=== PATIENT | female | born 1945 | race Caucasian/White ===

== ENCOUNTER 2023-11-02 08:05 | Inpatient (IN) | payer MEDICARE, SELFPAY ==
[2023-10-31] VITALS (9 sets, daily range): BP systolic 129–169; BP diastolic 54–92; BMI 27.0; BMI 26.6
[2023-10-31 14:55] LABS: Glucose - Point of Care 249 mg/dl (70-99)
--- NOTE | 2023-10-31 15:13 | ED.CVA ---
History of Present Illness
General
Chief Complaint: CVA/TIA Symptoms
Source: patient and family
Exam Limitations: none
Time Seen by Provider: 10/31/23 15:09
Nursing documentation reviewed up to this point in time: agreed with
Onset of Stroke Symptoms
Onset of symptoms known: Yes
Date of onset of symptoms: 10/31/23
Time of onset of symptoms: 14:00
Time pt last seen normal is known: Yes
Date last time pt seen normal: 10/31/23
Travel History
Have you had any contact with someone who has COVID-19?: No
Do you have any symptoms of coronavirus? Fever > 100 degrees, chills, cough, shortness of breath, sore throat, loss of taste or smell, muscle aches, or headache?: No
History of Present Illness
History of Present Illness:
77-year-old female presents emergency department due to left lower extremity weakness that started at 2 PM. She feels increased weakness and numbness. She does have numbness in that left leg from a prior stroke. She describes left arm heaviness
that she has had for 24 hours. She states she has problems with this arm from previous stroke. She takes Eliquis, and took it this morning.
Past History
Past History
ED Past Medical History: CVA, HTN and Hypercholesterolemia
ED Past Surgical History: Cholecystectomy and Other (kidney donor)
Social History
Tobacco: Non-smoker
Alcohol: None
Drug: None
Personal:
Living: with family
Employment: Retired
Review of Systems
Review of Systems
Allergies reviewed?: Yes
All Other Systems: Not applicable
Constitutional: Reports no symptoms
EENT: Reports no symptoms
Respiratory: Reports no symptoms
Cardiac: Reports no symptoms
ABD/GI: Reports no symptoms
: Reports no symptoms
Musculoskeletal: Reports no symptoms
Skin: Reports no symptoms
Neurological: Reports weakness and numbness
Endocrine: Reports no symptoms
Hematologic/Lymphatic: Reports no symptoms
Psychiatric: Reports no symptoms
Phy Exam
Physical Exam
Physical Exam:
Physical Exam
General: no apparent distress, not acutely ill
Neck: supple. no meningeal signs. normal posterior pharynx
Heart: s1/s2 regular rate and rhythm, no murmur. equal radial
pulses.
HEENT: Pupils equal round reactive to light, EOMI
Lungs: no acute respiratory distress. clear bilaterally
Abdomen: normal bowel sounds. not tender. no CVAT
Neuro: alert and oriented. Left lower leg drift. Cranial nerves II through XII intact
Skin: no rash
Psychiatric: well kept. interactive and cooperative
Extremities: no edema. no calf tenderness. negative homans. good distal pulses
Scores
NIH Stroke Score
Level of Consciousness: 0 - Alert
LOC Questions: 0-Answers both correctly
LOC Commands: 0-Performs both correctly
Best Horizontal Gaze: 0-Normal
Visual Serna: 0=Normal, no visual loss
Facial Palsy: 0=Normal, symmetrical
Motor - Right Arm: 0=No drift 10 seconds
Motor - Left Arm: 0=No drift 10 seconds
Motor - Right Le-No drift 5 seconds
Motor - Left Le-Drift < 5 seconds
Limb Ataxia: 1-Present in one limb
Sensation: 0-Normal
Best Language: 0-No aphasia
Dysarthria: 0-Normal
Extinction and Inattention: 0-No abnormality
Total Score:: 2
Course
Orders/Labs/Results
Orders:
Orders
10/31/23 Breakfast
Cholesterol Lowering
At Your Request: Full Participation
10/31/23 14:55
Electrocardiogram (*1) Urgent
Reason for Study: Other
Other Reason for Exam: Possible Stroke
10/31/23 14:56
CT Head W/o Iv Contrast Stat
Comment:
Reason For Exam: LLE numb/weak
EKG- Treatment ONCE
10/31/23 15:30
Cardiovascular Evaluation Urgent
Complete Blood Count/With Diff Urgent
Comprehensive Metabolic Panel Urgent
Erythrocyte Sed Rate Urgent
Comment: ADD ON
Ferritin Urgent
Comment: ADD ON
Folate Urgent
Comment: ADD ON
Glycohemoglobin (HgbA1c) Urgent
PTT Urgent
Prothrombin Time Urgent
TSH Reflex To Free T4 Urgent
Comment: ADD ON
Troponin I Urgent
Vitamin B12 Urgent
Comment: ADD ON
10/31/23 15:45
MR Brain Without Contrast Routine
Comment:
Reason For Exam: stroke left leg weakness
Recent pill cam endoscopy?: No
10/31/23 15:47
Add On- LAB Routine
Comments:: Please add to today's labs or draw as routine
Tests Added?: TSH reflex, Ferritin, Folate, Vit. B12, ESR, HgbA1C,lipid prof
Lorazepam [Ativan] 1 mg PO NOW STA
10/31/23 16:15
Urinalysis Reflex To Culture Routine
Date Specimen was Collected: 10/31/23
Time Specimen was Collected: 15:49
Urine Microscopic Reflex Cult Routine
Urine Culture Routine
SY Source: U
Specimen Description:
Date Specimen was Collected: 10/31/23
Time Specimen was Collected: 15:49
10/31/23 17:12
Admit/Transfer Patient As Directed
Co-Sign Provider:
Level of Care: Observation services
Assign to:: Telemetry
Physician / Group: rosy savage
Diagnosis: TIA
Reason for Telemetry: CVA/TIA
Date to Stop Telemetry: 11/03/23
Time to Stop Telemetry: 11:00
10/31/23 17:13
Code Status As Directed
Resuscitation Status: Full Code
10/31/23 17:37
CR Chest - 2 Views Stat
Comment:
Reason For Exam: fever
10/31/23 18:00
COVID-19 Antigen Stat
Source: Nasal Swab
Influenza A+B Rapid Molecular Stat
SY Source: Nasal Swab
Specimen Description:
10/31/23 19:19
Acetaminophen [Tylenol/Feverall] 650 mg RECTAL Q4HPRN PRN
Acetaminophen [Tylenol] 650 mg PO Q4HPRN PRN
Atorvastatin [Lipitor] 40 mg PO QPM
Ezetimibe [Zetia] 10 mg PO QPM
Valsartan [Diovan] 80 mg PO QPM
10/31/23 19:19
Case Management Consult ONCE
Case Management Consult: Discharge Planning
Comment: stroke/tia
DIETARY CONSULT Routine
Reason for Consult: stroke/TIA
NEUROLOGY CONSULT Urgent
Consulting Provider: Alec Salguero
Was physician already notified: Yes
Armature Winder Helper Repair Urgent
Activity As Directed
Activity Level: As Tolerated
NIH Stroke Scale As Directed
Directions: Per protocol
Comment: every shift and with any change in condition or mental status
Neurological Checks As Directed
Frequency: q4h
Additional Instructions:: q4h x 24h upon admission to the floor, then qshift & with any change in condition
and mental status
Patient Education As Directed
Type: Stroke education packet
Comment: provide to patient and family
Pneumatic Compression Sleeves As Directed
Type: Thigh high
Vital Signs As Directed
Frequency: Per unit guidelines
Ot Eval And Treat Routine
Pt Eval And Treat Routine
Activity Level: As Tolerated
Speech Therapy Eval & Treat Routine
DX Deep Vein Thrombosis Video Routine
11/01/23 06:00
Basic Metabolic Panel IN AM
Complete Blood Count/No Diff IN AM
11/03/23 11:00
DC Protocol for Telemetry ONCE
Abnormal Lab Results
10/31/23 10/31/23 10/31/23
14:54 15:30 16:15
WBC 19.9 H 10^3/uL
(4.8-10.8)
RBC 4.19 L 10^6/uL
(4.20-5.40)
Hct 36.0 L %
(37.0-47.0)
Abs Immat Gran (auto) 0.1 H 10^3/uL
(0-0.05)
Absolute Neuts (auto) 17.7 H 10^3/uL
(1.4-6.5)
Absolute Monos (auto) 0.9 H 10^3/uL
(0.1-0.6)
Neutrophils % 88.9 H %
(42.2-75.2)
Lymphocytes % 6.0 L %
(20.5-51.1)
PT 15.2 H Sec
(11.4-14.6)
Sodium 134 L mmol/L
(135-145)
Carbon Dioxide 20 L mmol/L
(22-30)
BUN 22 H mg/dl
(7-17)
Glucose 171 H mg/dl
(70-99)
AST 38 H U/L
(14-36)
Folate > 20.0 H ng/ml
(2.76-20)
Leukocyte Esterase Rfl 1+ A
(Negative)
Urine Bacteria (Reflex) Many A
(Negative)
POC Glucose 249 H mg/dl
(70-99)
10/31/23 15:30
10/31/23 15:30
Vital Signs
Initial and Last Documented VS:
Initial Vital Signs
Temp Pulse Resp BP Pulse Ox
98 F 113 16 169/81 98
10/31/23 14:54 10/31/23 14:54 10/31/23 14:54 10/31/23 14:54 10/31/23 14:54
Last Documented Vital Signs
Temp Pulse Resp BP Pulse Ox
98.4 F 92 20 130/70 97
10/31/23 22:54 10/31/23 22:54 10/31/23 22:54 10/31/23 22:54 10/31/23 19:35
MDM/Problems Addressed
Differential Diagnosis Includes:
CVA
MDM/Problems Addressed:
77-year-old female with left lower leg weakness, unclear from prior stroke or new. Patient on Eliquis. No indication for tPA or IAT. Seen on consult by Dr. Kurtz.
Chronic conditions affecting care: HTN and Neurological disorder (Prior CVA)
Acute Exacerbation and/or Progression of Chronic Illness: HTN and Neurological disorder (Prior CVA)
*Radiology
Radiology exam reviewed: radiology read reviewed (CT head no acute findings, chest x-ray no acute findings)
*Pulse Oximetry
Patient hypoxic: no
*EKG
Interpreted by ED Provider?: Yes
EKG Intrepretation Date: 10/31/23
EKG Intrepretation Time: 15:04
Interpretation: abnormal
Comparison EKG: no changes
Heart Rate: 103
Rate: tachycardiac
Rhythm: sinus tachycardia
[place]: normal axis
Interval: normal interval
QRS Pattern: normal QRS
Ischemia: no ischemia
*Real Estate Administrator Interpretation
Rate: normal
Interpretation: normal
Heart Rate: 93
Rhythm: sinus
*Critical Care Note
Total Time (30-74mins, 75-104mins- exclusive of procedures): 30
comment:
Critical care statement: A total of 30 minutes of critical care time was provided for this patient. This includes management of unstable vital signs, evaluation of the patient at bedside, reviewing the patient's pertinent medical records, discussion
with consultants, review of old EKGs and review of pertinent medical records. This time with separate from time utilized to perform the aforementioned documented procedures
Patient Management
Social determinants of health affecting care: Living situation and Strong social support
Discussion with other providers: Hospitalist and Log Stacker Operator (Discussed with Dr. Salguero, neurology, who saw patient on stroke alert)
Escalation/DeEscalation of care consider admission/obs:
Admit indicated
ED Attending Note
-
Portions of this chart may have been created with voice recognition software.� Occasional wrong word or��sound alike� substitutions may have occurred due to the inherent limitations of voice recognition software.
Discharge Plan
Departure
Patient Disposition: Admit
Date of Disposition: 10/31/23
Time of Disposition: 16:48
Admit to: Telemetry
Presentation/result/management discussed w/ accepting MD/DO: Hospitalist
Patient with high blood pressure during this ER visit?: Yes
Condition: Good
Discharge Problem:
CVA (cerebral vascular accident)
Interventions
Interventions:
*Risk Screen - Suicide Last Done: 10/31/23 15:32
*General Assessment Last Done: 10/31/23 14:56
*Neglect/Abuse Screening Last Done: 10/31/23 16:00
ED- Fall Risk Assessment Last Done: 10/31/23 16:00
*ED COVID-19 Vaccine History Last Done: 10/31/23 15:32
*Nursing Disposition Last Done: 10/31/23 19:16
ED- Pulmonary Assessment Last Done: 10/31/23 15:32
ED- Neurological Assessment Last Done: 10/31/23 14:58
ED- Cardiac Assessment Last Done: 10/31/23 15:32
ED Swallowing Screen Last Done: 10/31/23 16:06
Discharge Date and Time
Discharge Date/Time: 10/31/23 19:10
--- NOTE | 2023-10-31 15:37 | CON.NEURO ---
Neuro Assessment/Plan
Assessment
IMPRESSIONS/RECOMMENDATIONS:
Abrupt onset left lower extremity weakness in a patient with prior left hemibody weakness associated with acute ischemic stroke
Differential diagnosis includes recurrent stroke, exacerbation of prior stroke
Patient was not a candidate for either tenecteplase or intra-arterial thrombectomy due to lack of clarity regarding diagnosis and current use of apixaban as well as NIH stroke scale less than 6
Plan
Check MRI brain
Consider recheck of cerebral and extracerebral vasculature, prior testing in 2019 failed to demonstrate significant stenosis at that time
Continue Ezetimibe
DVT prophylaxis
Goal of normotension
Goal of normoglycemia
Check additional evaluations for alternative etiologies for the patient's current symptomatology
Will continue to follow patient. Thank you.
Consultation
Order
Date of Consultation: 10/31/23
Requesting Provider: ED physician
Reason for Consult: Stroke alert
Subjective/Objective
Subjective Data
Date of Service: October 31, 2023
Adapted from my former coworker's consult note:
DATE/TIME OF CONSULTATION: 08/27/2020
Reason for Consultation: Stroke alert
This is a 74 years old female with a history of CVA in February 2020 with no residual weakness presents to ED secondary to recurrent left hand/arm weakness starting around 8 PM last night. Stroke alert was activated and cone classifier tender neurologist was called.
Urgent head CT and CTA were performed.
Patient developed acute weakness with left arm around 8 PM and she has difficulty to lift a cup of tea. Denies difficulty with speech. She denies weakness or numbness in other parts of her body. She has no difficulty with vision. She is taking baby
aspirin 81 mg daily at home. She reported that she had a stroke in March 2020 with acute weakness on left arm. However she recovered well and does not have residual symptoms from previous stroke.
Urgent head CT did not show acute intracranial abnormalities. Patient was given TPA at emergency room. Her urgent CTA of head and neck did not show large vessel occlusion or significant stenosis.
~~~~
Subsequent evaluation by means of MRI of brain indicated multiple acute ischemic strokes in the right MCA territory as well as old ischemic stroke in the right parietal lobe.
Patient returns today to this hospital's emergency department with reported new onset left lower extremity weakness beginning at 1400 hrs. The patient herself reports no new medical changes recently and no known associated symptoms with the
exception of the patient noting mild difficulty with ambulation. No known modifying factors. Patient has experienced weakness involving her left side as listed above which began after her initial stroke in March 2020. Patient has not experienced
any falling but does have a greater sense of unsteadiness.
Objective Data
Vital Signs
Temp Pulse Resp BP Pulse Ox
36.6 C 113 16 163/69 97
10/31/23 14:54 10/31/23 14:54 10/31/23 14:54 10/31/23 15:20 10/31/23 15:32
Patient Allergies
morphine Allergy (Verified 08/26/20 20:27)
Hives
oxycodone HCl [From Percocet] Allergy (Verified 08/26/20 20:27)
Nausea / Vomiting
CVA Assessment
Onset of Stroke Symptoms
Onset of symptoms known: Yes
Date of onset of symptoms: 10/31/23
Time of onset of symptoms: 14:00
Time pt last seen normal is known: Yes
Date last time pt seen normal: 10/31/23
Time last time pt seen normal: 14:00
NIH Stroke Score
Level of Consciousness: 0 - Alert
LOC Questions: 0-Answers both correctly
LOC Commands: 0-Performs both correctly
Best Horizontal Gaze: 0-Normal
Visual Serna: 0=Normal, no visual loss
Facial Palsy: 0=Normal, symmetrical
Motor - Right Arm: 0=No drift 10 seconds
Motor - Left Arm: 1=Drift < 10 seconds
Motor - Right Le-No drift 5 seconds
Motor - Left Le-Drift < 5 seconds
Limb Ataxia: 0-Absent
Sensation: 0-Normal
Best Language: 0-No aphasia
Dysarthria: 1-Mild slurring
Extinction and Inattention: 0-No abnormality
Total Score:: 3
Tenecteplase Contraindications
Inclusion and Exclusion criteria reviewed: Yes
Reasons for NON-Tx with Thrombolytics ABSOLUTE Exclusions: Patient taking oral anticoagulant and last dose within 48 hours
IAT Contraindications: NIHSS < 6
Modified [place] Score (MRS)
-
MRS Score:
Review of Systems
-
History Source: Patient
All other systems: Reviewed and negative
EENT: Negative Swallowing Difficulty
Respiratory: Negative Trouble Breathing
Cardiac: Negative Chest Pain
Abdomen/GI: Negative Incontinence of Stool
Genitourinary: Negative Incontinence
Musculoskeletal: Negative Back Pain or Neck Pain
Neuro: Negative Dizzy or Headache
Physical Exam
-
General: No Apparent Distress and Appears Stated Age
Eyes: OU Absent Papilledema, Round OU, [place] Conjunctivae and No Ptosis
HEENT: Anicteric and Moist Mucous Membranes
Neck: Full Range of Motion
Respiratory: No Dyspnea
Cardiac: No JVD
GI: Non-distended
Skin: Unremarkable
Extremities: No Clubbing, No Cyanosis and No Edema
Psych: Intact Judgement/Insight
Extended Neurological Exam
Mood & Affect: Mood Unremarkable and Affect Unremarkable
Attention Span & Concentration: Awake, Alert, Interactive and Moderate Difficulty with 2 Step Request
Memory: Unremarkable
Tremor: Hand Tremor Absent and Head Tremor Absent
Speech: Quality Unremarkable and Quantity Unremarkable
Cranial Nerve II: Left Eye: Pupillary Reactivity Unremarkable, Pupillary Size Unremarkable and Visual Serna Intact
Cranial Nerve II: Right Eye: Pupillary Reactivity Unremarkable, Pupillary Size Unremarkable and Visual Serna Intact
Cranial Nerves III, IV, : Extraocular Movement: Extraocular Movement Full in all Directions
Cranial Nerve VII: Facial Symmetry: Normal Facial Symmetry
Cranial Nerve VIII: Hearing: Unremarkable Hearing to Normal Conversational Volume
Cranial Nerves IX, X: Palate Movement: Palate Elevation Symmetric
Cranial Nerve XI: Shoulder Shrug: Unremarkable
Cranial Nerve XII: Tongue Protusion: Midline
Muscle Strength, Overall: Reduced on Left (4 - out of 5 distal left upper extremity, 4+ out of 5 left lower extremity proximally)
Muscle Bulk & Tone: Bulk Unremarkable and Tone Unremarkable
Deep Tendon Reflexes: 3+ (Left upper and lower extremities) and Otherwise Unremarkable
Touch Sensation: Double Simultaneous Stimulation Unremarkable
Coordination: [place]-[id number]-fcbjho Testing Unremarkable and Rfbl-Hptf-Lfhe movements intact bilaterally
Babinski Sign: Absent Bilaterally
Gait & Station: Unable to Assess
Data Reviewed
-
CT-A: Report Reviewed (2020 less than 50% stenosis bilaterally)
CT Head: Report Reviewed (Left parietal chronic stroke)
Labs: Report Reviewed
HgbA1C: Ordered
Reviewed with: Physician, Nurse Practioner, Patient and Family
Old Records: Summarized
Medications
-
Home Medications
Medication Instructions Recorded
aspirin 81 mg tablet,delayed 81 mg PO DAILY Blood clot 10/07/13
release prevention/tx
ezetimibe 10 mg tablet 10 mg PO QPM High cholesterol 10/07/13
docosahexaenoic acid (dha)-epa 120 1 cap PO DAILY Supplement 04/08/14
mg-180 mg capsule
amlodipine 10 mg tablet 10 mg PO DAILY Blood pressure 08/26/20
atorvastatin 40 mg tablet 40 mg PO QPM High cholesterol 08/26/20
calcium carbonate 500 mg calcium 500 mg PO DAILY Supplement 08/27/20
(1,250 mg) tablet (Oyster Shell
Calcium 500)
cholecalciferol (vitamin D3) 25 1,000 units PO DAILY Supplement 08/27/20
mcg (1,000 unit) tablet
docusate sodium 100 mg capsule 200 mg PO HS Constipation 08/27/20
multivitamin with folic acid 400 1 tab PO DAILY Supplement 08/27/20
mcg tablet (Tab-A-Jose Luis)
acetaminophen 325 mg tablet 650 mg PO Q4HPRN PRN GRACIA, mild 09/01/20
pain, or temp >100.4F
clopidogrel 75 mg tablet 75 mg PO DAILY 09/01/20
Past History
Past History
ED Past Medical History: Arrthythmia (AFib), CVA (2018, 08/2021), HTN and Hypercholesterolemia
ED Past Surgical History: Cholecystectomy and Other (kidney donor)
Social History
Tobacco: Non-smoker
Alcohol: None
Drug: None
Personal:
Living: with family
Employment: Retired
Family History
Family History: Other (reviewed and non-contributory)
[2023-10-31 15:38] LABS: % Basophils 0.3 % (0-2); % Immature Granulocytes 0.5 % (0-0.5); % Monocytes 4.3 % (1.7-9.3); % Neutrophils 88.9 % (42.2-75.2); Absolute Basophils 0.1 10^3/uL (0-0.2); Absolute Immature Granulocytes 0.1 10^3/uL (0-0.05); Absolute Lymphocytes 1.2 10^3/uL (1.2-3.4); Absolute Monocytes 0.9 10^3/uL (0.1-0.6); Absolute Neutrophils 17.7 10^3/uL (1.4-6.5); Hemoglobin 12.7 g/dL (12.0-16.0); Mean Corp Hgb Conc. 35.3 g/dL (33.0-37.0); Mean Corpuscular Hgb 30.3 pg (27.0-31.0); Mean Corpuscular Volume 85.9 fL (81.0-99.0); Mean Platelet Volume 9.5 fL (7.4-10.4); Nucleated Red Blood Cells % 0 %; Platelet Count 189 10^3/uL (130-400); Red Blood Cell Count 4.19 10^6/uL (4.20-5.40); Red Cell Dist. Width 12.6 % (11.5-14.5); White Blood Cell Count 19.9 10^3/uL (4.8-10.8)
[2023-10-31 15:48] LABS: INR 1.22; PT 15.2 Sec (11.4-14.6)
[2023-10-31 16:01] LABS: Troponin I < 0.012 ng/ml
[2023-10-31 16:10] LABS: ALT (SGPT) 31 U/L (0-35); AST (SGOT) 38 U/L (14-36); Albumin 3.9 g/dl (3.5-5.0); Alkaline Phosphatase 65 U/L (38-126); Blood Urea Nitrogen 22 mg/dl (7-17); Calcium 9.4 mg/dl (8.4-10.2); Carbon Dioxide 20 mmol/L (22-30); Chloride 106 mmol/L (98-107); Estimated Creatinine Clearance 55 ml/min; Glucose 171 mg/dl (70-99); Potassium 4.4 mmol/L (3.5-5.1); Sodium 134 mmol/L (135-145); Total Bilirubin 1.2 mg/dl (0.2-1.3); Total Protein 6.4 g/dl (6.3-8.2); eGFR > 60.00
[2023-10-31 16:12] LABS: Erythrocyte Sed Rate 14 mm/hour (0-20)
[2023-10-31] MEDS: ATIVAN 1 MG PO (16:16)
[2023-10-31 16:33] LABS: Urine Albumin Negative (Neg - Trace); Urine Bilirubin Negative (Negative); Urine Character Clear (Clear); Urine Color Yellow; Urine Glucose Negative (Negative); Urine Ketone Negative (Negative); Urine Leukocyte 1+ (Negative); Urine Nitrite Negative (Negative); Urine Occult Blood Negative (Negative); Urine Urobilinogen Negative (Neg - 1+)
[2023-10-31 16:35] LABS: HDL Cholesterol 49 mg/dl; LDL Cholesterol, Calculated 38 mg/dl; Total Cholesterol 102 mg/dl (50-199); Triglyceride 79 mg/dl (10-149); Very Low Density Lipoprotein 15 mg/dl (0-30)
--- NOTE | 2023-10-31 16:50 | HPS.HSE ---
Addendum entered and electronically signed by David Carr MD 10/31/23 17:46:
Seen and examined by me independently in collaboration with the nurse practitioner Ajith.
Past medical history/social history/medication/allergies reviewed.
Lab data and imaging data reviewed.
Patient with a prior history of stroke, A-fib on Eliquis with good compliance presents with acute onset of left lower extremity weakness. She has residual weakness in the left side and left arm more than left leg. Today she was on treadmill was
doing okay but then at 1:00pm she developed acute onset of left leg weakness. She does have some tingling in the left leg up to the thigh since the stroke and no new sensory changes. Left upper extremity weakness as before without changes. No
headache. No double vision. No speech impairment.
Left upper extremity 4.5 strength. She has contractures in the left forearm and hand.
Left lower extremity distally 3/5 proximally 4/5 ;reflexes 2+BL knees.
No facial asymmetry. No aphasia.
Patient denies any back pain issues. No trauma.
CT head shows no evidence of acute bleed or stroke.
Patient seen by neurology who recommends an MRI brain. Continue with anticoagulation per neurology.
Patient also was having nonspecific tiredness and weakness since yesterday evening. No fever or chills. No focal infective symptoms-no sore throat, cough, shortness of breath. No nausea vomiting diarrhea. No dysuria or frequency of urine. No
joint swellings, no rash.
She has leukocytosis of unclear etiology. No chronic elevation. No recent steroids.
UA without pyuria.
Will check COVID-19, flu testing. Check a chest x-ray. Follow closely leukocytosis while holding antibiotics.
Original Note:
Family Physician
-
Family Physician: Yahir Lawrence
Chief Complaint
-
left leg weakness
History of Present Illness
77-year-old with past medical history for A-fib, CVA, hypertension, hyperlipidemia presented to us with new onset left lower extremity weakness beginning at 1 PM.patient got out of the car and was not able to walk. Her left leg was very heavy.
She was dragging her leg. Patient has a history of CVA with left arm weakness. She feels a [id number] in her left lower extremity since the stroke. Initially with her prior stroke, she had left lower extremities weakness but got improved
with physical therapy. She was walking without any assistive devices. She was able to do treadmill this morning. Her symptoms persisted, which prompted her to come to the ER. Patient denied any headache, dizziness or syncopal episode. Patient
denied any blurry vision, numbness or tingling. Patient denied any chest pain, short of breath. Patient denied abdominal pain, nausea, vomiting, diarrhea. Patient denied dysuria hematuria.
Head CT with no acute findings. Patient was evaluated by neurology. Admitting for further management
Medical History
Past Medical History
Past Medical History: Reports Other
Additional Past Medical History:
CVA
Paroxysmal A-fib
Hypertension
Hyperlipidemia
Past Surgical History: Reports Other
Additional Past Surgical History:
Cholecystectomy
Left kidney donor
Social History
Tobacco: Non-smoker
Alcohol: None
Drug: None
Personal: Single
Living: With Family
Family History
Family History: Not pertinent
Allergies / Home Medications
Allergies reflects when Allergies were last updated in [facility].
Home Medications with original date entered in [facility]
Allergy/Medication List:
Allergies
Allergy/AdvReac Type Severity Reaction Status Date / Time
morphine Allergy Hives Verified 08/26/20 20:27
oxycodone HCl [From Percocet] Allergy Nausea / Verified 08/26/20 20:27
Vomiting
Home Medications
ezetimibe 10 mg tablet 10 mg PO QPM High cholesterol 10/07/13
atorvastatin 40 mg tablet 40 mg PO QPM High cholesterol 08/26/20
calcium carbonate 500 mg calcium (1,250 mg) tablet (Oyster Shell Calcium 500) 500 mg PO DAILY Supplement 08/27/20
cholecalciferol (vitamin D3) 25 mcg (1,000 unit) tablet 1,000 units PO DAILY Supplement 08/27/20
multivitamin with folic acid 400 mcg tablet (Tab-A-Jose Luis) 1 tab PO DAILY Supplement 08/27/20
apixaban 5 mg tablet (Eliquis) 5 mg PO BID 10/31/23
valsartan 80 mg tablet 80 mg PO QPM 10/31/23
Review of Systems
-
Constitutional: Reports No Symptoms
EENT: Reports No Symptoms
Respiratory: Reports No Symptoms
Cardiac: Reports No Symptoms
Abdomen/GI: Reports No Symptoms
: Reports No Symptoms
Musculoskeletal: Reports No Symptoms
Skin: Reports No Symptoms
Neurological: Reports Weakness (Left lower extremity weakness, chronic left arm weakness)
Endocrine: Reports No Symptoms
Hematologic/Lymphatic: Reports No Symptoms
Psych: Reports No Symptoms
Physical Exam
Vital Signs
Vital Signs
Temp Pulse Resp BP Pulse Ox
98 F 113 16 163/69 97
10/31/23 14:54 10/31/23 14:54 10/31/23 14:54 10/31/23 15:20 10/31/23 15:32
Physical Exam
General: Well Developed, Well Nourished and No Apparent Distress
HEENT: NormoCephalic, Moist mucous membranes and Atraumatic
Respiratory: Clear
Cardiac: S1/S2 and Regular Rhythm; No Murmur or Rub
GI: Soft, Non Tender, Non Distended and Normal Bowel Sounds; No Organomegaly
Rectal: Deferred by Provider
Musculoskeletal: No Clubbing, No Cyanosis and No Edema
Skin: No Rash
Neuro: Nonfocal/grossly intact and Other (Left lower extremity weakness, chronic left arm weakness)
Psych: Calm
Laboratory Results
-
10/31/23 15:30
10/31/23 15:30
Laboratory Results
PT 15.2 Sec (11.4-14.6) H 10/31/23 15:30
INR 1.22 10/31/23 15:30
APTT 34.0 Sec (23.4-35.0) 10/31/23 15:30
Total Bilirubin 1.2 mg/dl (0.2-1.3) 10/31/23 15:30
AST 38 U/L (14-36) H 10/31/23 15:30
ALT 31 U/L (0-35) 10/31/23 15:30
Alkaline Phosphatase 65 U/L (38-126) 10/31/23 15:30
Troponin I < 0.012 ng/ml 10/31/23 15:30
Data Reviewed
-
CT Scan: Report Reviewed by me
Lab Data: Labs Reviewed by me
Impression/Plan
-
# Left-sided weakness rule out acute CVA
-CT head here are no acute intracranial abnormalities.There is stable old 3.5 cm cortical infarct at the anterior aspect of the left parietal convexity
-Obtain MRI
-Obtain A1c, lipid profile
-Statin continued
-zetia continued
-PT/OT consult
-Neuro following
# Leukocytosis likely stress reaction
-WBCs 19.9, afebrile
-UA negative
-ctm
#�Essential hypertension
-BP stable in ER
-valsartan continued
#paroxysmal atrial fib
-EKG with sinus tachycardia
-on eliquis
#Hyperlipidemia. Continue Lipitor and Zetia.
# DVT prophylaxis: SCDs.
# Code status: Full code.
[2023-10-31 16:54] LABS: Urine Mucus Few
[2023-10-31 16:55] LABS: Urine Bacteria Many (Negative); Urine Red Blood Cell 0-2 /HPF (0-2); Urine Squamous Cell 0-2 /LPF (Few)
[2023-10-31 17:22] LABS: TSH Reflex To Free T4 1.72 uIU/ml (0.47-4.68)
[2023-10-31 17:58] LABS: Folate > 20.0 ng/ml (2.76-20); Vitamin B12 645 pg/ml (239-931)
[2023-10-31 18:24] LABS: COVID-19 Antigen Negative (Negative)
[2023-10-31] MEDS: DIOVAN 80 MG PO (20:35)
[2023-10-31] MEDS: ZETIA 10 MG PO (20:35)
[2023-10-31] MEDS: LIPITOR 40 MG PO (20:35)
[2023-10-31] MEDS: ELIQUIS 5 MG PO (20:37)
--- NOTE | 2023-10-31 23:50 | PTCARENOTE ---
Patient recieved at 1930 from ED. 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 AAOx3, VSS. Oriented to room, call abarca, plan of care.
[2023-11-01] VITALS (7 sets, daily range): BP systolic 108–146; BP diastolic 61–86; PULSE 84; O2SAT 98
[2023-11-01] MEDS: ELIQUIS 5 MG PO ×2 (07:27→20:36)
--- NOTE | 2023-11-01 08:35 | PTOTSP ---
Speech Language Pathology
Pt seen for speech/language evaluations. Pt with mild dysarthria, but pt stated she is at baseline. 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 She was 100% intelligible in both known and
unknown contexts. Language evaluated via the Quick Aphasia Battery (QAB), form 1A. Overall score of 9.65 indicative of no aphasia.
Pt also seen for clinical bedside swallow evaluation. P.O. trials of puree, regular solids, and thin liquids provided. Adequate mastication, bolus formation, and A-P transit noted with no oral residue. No overt signs of aspiration.
Recommend:
(1) Continue regular solids/thin liquids
(2) General aspiration precautions
(3) Meds as tolerated
(4) BINDING END STITCHER follow up pending MRI. If negative for acute process, BINDING END STITCHER to sign off. If positive, BINDING END STITCHER to follow for therapeutic reassessment of cognitive abilities
[2023-11-01 08:45] LABS: Hematocrit 35.2 % (37.0-47.0); Hemoglobin 11.8 g/dL (12.0-16.0); Mean Corp Hgb Conc. 33.5 g/dL (33.0-37.0); Mean Corpuscular Hgb 30.1 pg (27.0-31.0); Mean Corpuscular Volume 89.8 fL (81.0-99.0); Mean Platelet Volume 9.8 fL (7.4-10.4); Platelet Count 174 10^3/uL (130-400); Red Blood Cell Count 3.92 10^6/uL (4.20-5.40); Red Cell Dist. Width 12.7 % (11.5-14.5); White Blood Cell Count 12.4 10^3/uL (4.8-10.8)
[2023-11-01 08:54] LABS: Glycohemoglobin (HgbA1c) 5.9 % (4.0-5.6)
[2023-11-01 09:20] LABS: Blood Urea Nitrogen 16 mg/dl (7-17); Calcium 9.4 mg/dl (8.4-10.2); Carbon Dioxide 24 mmol/L (22-30); Chloride 107 mmol/L (98-107); Estimated Creatinine Clearance 55 ml/min; Glucose 94 mg/dl (70-99); Potassium 4.7 mmol/L (3.5-5.1); Sodium 138 mmol/L (135-145); eGFR > 60.00
--- NOTE | 2023-11-01 09:22 | W.PN.NEURO.1 ---
Today's Communication / Plan
-
Check MRI brain
Continue Apixaban
Consider recheck of cerebral and extracerebral vasculature, prior testing in 2019 failed to demonstrate significant stenosis at that time
continue search for elevated WBCs
Neuro Assessment/Plan
Assessment
IMPRESSIONS/RECOMMENDATIONS:
Abrupt onset left lower extremity weakness in a patient with prior left hemibody weakness associated with acute ischemic stroke
Differential diagnosis includes recurrent stroke, exacerbation of prior stroke
Patient was not a candidate for either tenecteplase or intra-arterial thrombectomy due to lack of clarity regarding diagnosis and current use of apixaban as well as NIH stroke scale less than 6
Plan
Check MRI brain
Continue Apixaban
Consider recheck of cerebral and extracerebral vasculature, prior testing in 2019 failed to demonstrate significant stenosis at that time
continue search for elevated WBCs
Continue Ezetimibe
DVT prophylaxis with Apixaban
Goal of normotension
Goal of normoglycemia
Will continue to follow pending results, then patient may follow as outpatient.
Subjective/Objective
Subjective Data
Date of Service: November 01, 2023
Continued weakness.
Objective Data
Vital Signs
Temp Pulse Resp BP Pulse Ox
37.1 C 88 16 146/72 98
11/01/23 07:40 11/01/23 07:40 11/01/23 07:40 11/01/23 07:40 11/01/23 07:40
Lab Results
11/01/23 08:02
11/01/23 08:02
PT 15.2 Sec (11.4-14.6) H 10/31/23 15:30
INR 1.22 10/31/23 15:30
APTT 34.0 Sec (23.4-35.0) 10/31/23 15:30
Sodium 138 mmol/L (135-145) 11/01/23 08:02
Potassium 4.7 mmol/L (3.5-5.1) 11/01/23 08:02
BUN 16 mg/dl (7-17) 11/01/23 08:02
Glucose 94 mg/dl (70-99) 11/01/23 08:02
Calcium 9.4 mg/dl (8.4-10.2) 11/01/23 08:02
LDL Cholesterol, Calc 38 mg/dl 10/31/23 15:30
Vitamin B12 645 pg/ml (239-931) 10/31/23 15:30
Patient Allergies
morphine Allergy (Verified 08/26/20 20:27)
Hives
oxycodone HCl [From Percocet] Allergy (Verified 08/26/20 20:27)
Nausea / Vomiting
Review of Systems
-
History Source: Patient
All other systems: Reviewed and negative
EENT: Negative Decreased Vision or Swallowing Difficulty
Respiratory: Negative Trouble Breathing
Cardiac: Negative Chest Pain
Abdomen/GI: Negative Incontinence of Stool
Genitourinary: Negative Incontinence
Musculoskeletal: Negative Back Pain or Neck Pain
Neuro: Weakness; Negative Dizzy or Headache
Physical Exam
-
General: No Apparent Distress and Appears Stated Age
Eyes: Round OU, Pag[place] Conjunctivae and No Ptosis
HEENT: Anicteric and Moist Mucous Membranes
Neck: Full Range of Motion
Respiratory: No Dyspnea
Cardiac: No JVD
GI: Non-distended
Skin: Unremarkable
Extremities: No Clubbing, No Cyanosis and No Edema
Psych: Intact Judgement/Insight
Extended Neurological Exam
Mood & Affect: Mood Unremarkable and Affect Unremarkable
Attention Span & Concentration: Awake, Alert, Interactive and Moderate Difficulty with 2 Step Request
Memory: Unremarkable
Tremor: Hand Tremor Absent and Head Tremor Absent
Speech: Quality Unremarkable and Quantity Unremarkable
Cranial Nerve II: Left Eye: Pupillary Size Unremarkable and Visual Serna Grossly Intact
Cranial Nerve II: Right Eye: Pupillary Size Unremarkable and Visual Serna Grossly Intact
Cranial Nerves III, IV, : Extraocular Movement: Slow Saccades and Other (otherwise intact)
Cranial Nerve VII: Facial Symmetry: Normal Facial Symmetry
Cranial Nerve VIII: Hearing: Unremarkable Hearing to Normal Conversational Volume
Cranial Nerve XI: Shoulder Shrug: Unremarkable
Muscle Strength, Overall: Reduced on Left (4 - out of 5 distal left upper extremity, 4+ out of 5 left lower extremity proximally)
Muscle Bulk & Tone: Bulk Unremarkable and Tone Unremarkable
Coordination: Uyghyq-szni-wzhixg Testing Unremarkable (relative to weakness on left)
Gait & Station: Unable to Assess
Modified Savanah Score (MRS)
-
MRS Score:
Data Reviewed
-
Labs: Report Reviewed
Reviewed with: Nurse Practioner, Patient and Family
Old Records: Summarized
--- NOTE | 2023-11-01 10:47 | CM ---
Addendum entered by Janet Lala 11/01/23 14:34:
Referral to [facility] via [facility].
Addendum entered by Janet Lala 11/01/23 14:26:
Patient was also in [facility] in the past.
Addendum entered by Janet Lala 11/01/23 14:20:
Per PT/OT eval recommendation is for acute vs outpatient rehab.
Continue to follow.
Addendum entered by Janet Lala 11/01/23 10:52:
[facility] form completed.
Original Note:
Patient seen bedside.
IA completed.
Patient lives with daughter and 4 year old granddaughter.
Patient independent prior to admission without assistive devices.
Patient drives.
Patient has had [facility] in the past.
Was in [facility] in the past for 1 day.
PT/OT (P)
PCP: Dr Lawrence
Pharmacy: [facility]
Plan:No d/c needs anticipated, continue to follow for possible VN needs.
--- NOTE | 2023-11-01 13:14 | W.PN.HOSP.TC ---
Today's Communication/Plan
-
Follow MRI Brain
Assessment / Plan
Assessment / Plan
# Left lower extremity weakness worse than baseline;chronic left sided weakness since prior stroke- rule out acute CVA
-CT head here are no acute intracranial abnormalities.There is stable old 3.5 cm cortical infarct at the anterior aspect of the left parietal convexity
- MRI brain report pending
-HbA1c 5.9, lipid profile -ldl 38
-Statin continued
-zetia continued
-PT/OT consult
-Neuro following
# Leukocytosis -unclear etiology
-WBCs 19.9, afebrile.
-No focal infective symptoms. Urinalysis without pyuria. Chest x-ray without acute disease in the chest. COVID and flu negative. Patient had nonspecific tiredness before coming in which all resolved now. Improving white count without
treatments. Cannot rule out a viral syndrome.
-ctm
#�Essential hypertension
-BP stable
-valsartan continued
#paroxysmal atrial fib
-EKG with sinus tachycardia
-on eliquis
#Hyperlipidemia. Continue Lipitor and Zetia.
# DVT prophylaxis: SCDs.
# Code status: Full code.
Anticipated Discharge: Today
Subjective/Interval History
-
Date of Service: November 01, 2023
Improved strength in the left foot. Still feels a weakness in the left leg. She is okay without much weakness in the left thigh area. No pain in the joints in the left leg. No new sensory disturbances in the left leg. No new neurological
symptoms.
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
Objective Data
-
Labs:
Laboratory Results
11/01/23
08:02
WBC 12.4 H
Hgb 11.8 L
Hct 35.2 L
Plt Count 174
Sodium 138
Potassium 4.7
Chloride 107
Carbon Dioxide 24
BUN 16
Creatinine 0.8
Glucose 94
Calcium 9.4
Vital Signs:
Vital Signs
Temp Pulse Resp BP Pulse Ox
98.9 F 78 16 142/84 97
11/01/23 11:00 11/01/23 11:00 11/01/23 11:00 11/01/23 11:00 11/01/23 11:00
I&O
10/31/23 11/01/23 11/02/23
06:59 06:59 06:59
Intake Total 120 / 120
Balance 120 / 120
Review of Systems
-
Constitutional: Denies Fever or Chills
EENT: Denies Sore Throat
Respiratory: Denies Cough or Trouble Breathing
Cardiac: Denies Chest Pain or Palpitations
Abdomen/GI: Denies Abdominal Pain, Nausea, Vomiting or Diarrhea
Genitourinary: Denies Dysuria or Frequency
Neuro: Denies Dizzy or Headache
Physical Exam
-
General: No Apparent Distress
HEENT: Moist Mucous Membranes
Respiratory: Clear to Auscultation
Cardiac: Regular Rhythm and S1/S2
GI: Soft
Neuro: AO x 3; Negative No Motor Deficits (Lt foot flexion 4/5 ;lf knee extension 4/5)
Psych: Calm
Data Reviewed
-
Labs: Labs Reviewed by me
[2023-11-01] MEDS: LIPITOR 40 MG PO (17:01)
[2023-11-01] MEDS: DIOVAN 80 MG PO (17:01)
[2023-11-01] MEDS: ZETIA 10 MG PO (17:01)
[2023-11-02 03:15] VITALS: BP 111/66
--- NOTE | 2023-11-02 07:14 | W.PN.NEURO.1 ---
Today's Communication / Plan
-
Had a amy discussion with the patient about her options for medication and whether or not to make changes to her regimen
-Would recommend aspirin 81 mg daily in addition to her anticoagulation and patient feels she would like to make a switch away from apixaban and start rivaroxaban which I feel is certainly reasonable. Would start rivaroxaban full anticoagulation
for atrial fibrillation tomorrow
-Continue the current dose of atorvastatin her LDL is less than 70
-Would check a transthoracic echocardiogram, ROSALIO is felt to be low yield and would not recommend this
-Goal normotension
-Physical therapy occupational and PMR evaluations
-Will need outpatient follow up in 4 -6 weeks
Will follow peripherally call with questions and concerns
Neuro Assessment/Plan
Assessment
77-year-old woman with a past med history of atrial fibrillation and previous stroke with residual left arm spasticity and weakness presented hospital with new left leg weakness. Patient has been compliant with atorvastatin as well as apixaban.
MRI brain demonstrates strokes in the right MCA territory which are acute and explain the left leg weakness.
CTA of the head and neck does show evidence of atherosclerosis with plaque in the left carotid bifurcation and no significant stenosis, mild 30% right ICA carotid origin plaque, and intracranial atherosclerotic plaque without significant stenosis in
the intracranial carotid artery. Additionally there is partially calcific atherosclerotic plaque in the aortic arch seen.
Patient has 2 predominant sources of stroke in the form of atrial fibrillation in addition to atherosclerotic plaque seen in the aorta as well as left carotid artery which although does not produce a severe stenosis can still represent potential
source of ischemic stroke and emboli.
Patient has had a stroke despite apixaban which does present a difficult situation, medical literature does not indicate that switching the mode of anticoagulation leads to significantly decrease risk of stroke. Patient has been very compliant with
apixaban. Had a amy discussion that there generally is not a clear answer in situations such as this. This there would be an option to add on antiplatelet medication or consider switching the type of anticoagulant but no existing data points
towards a clear answer in these types of situations.
Subjective/Objective
Subjective Data
Date of Service: November 02, 2023
No acute events, discussed the stroke medication options and reasoning behind each, she has left leg weakness and is interested in PT and potentially rehab.
Objective Data
Vital Signs
Temp Pulse Resp BP Pulse Ox
98.2 F 94 18 111/66 97
11/02/23 03:15 11/02/23 03:15 11/02/23 03:15 11/02/23 03:15 11/02/23 03:15
Lab Results
11/01/23 08:02
11/01/23 08:02
PT 15.2 Sec (11.4-14.6) H 10/31/23 15:30
INR 1.22 10/31/23 15:30
APTT 34.0 Sec (23.4-35.0) 10/31/23 15:30
Sodium 138 mmol/L (135-145) 11/01/23 08:02
Potassium 4.7 mmol/L (3.5-5.1) 11/01/23 08:02
BUN 16 mg/dl (7-17) 11/01/23 08:02
Glucose 94 mg/dl (70-99) 11/01/23 08:02
Calcium 9.4 mg/dl (8.4-10.2) 11/01/23 08:02
LDL Cholesterol, Calc 38 mg/dl 10/31/23 15:30
Vitamin B12 645 pg/ml (239-931) 10/31/23 15:30
Patient Allergies
morphine Allergy (Verified 08/26/20 20:27)
Hives
oxycodone HCl [From Percocet] Allergy (Verified 08/26/20 20:27)
Nausea / Vomiting
LDL Level: <70, no statin needed
Review of Systems
-
History Source: Patient
All other systems: Reviewed and negative
Constitutional: No Symptoms
EENT: No Symptoms Reported
Respiratory: No Symptoms
Cardiac: No Symptoms
Abdomen/GI: No Symptoms
Genitourinary: No Symptoms
Musculoskeletal: No Symptoms
Skin: No Symptoms
Neuro: Weakness; Negative Headache or Speech Problem
Endocrine: No Symptoms
Hematologic / Lymphatic: No Symptoms
Allergy / Immunology: No Symptoms
Physical Exam
-
General: Well Developed, Well Nourished and Comfortable
Eyes: No Ptosis
HEENT: Atraumatic, Anicteric and Moist Mucous Membranes
Neck: Full Range of Motion
Respiratory: No Dyspnea
Cardiac: No Murmur
GI: Soft and Non-tender
Skin: Warm and Dry; Negative Rash
Extremities: No Edema
Psych: Intact Judgement/Insight
Extended Neurological Exam
Attention Span & Concentration: Awake, Alert, Interactive and No Difficulty with 2 Step Request
Memory: Able to Recall
Tremor: Hand Tremor Absent
Involuntary Movement: None
Speech: Quality Unremarkable and Quantity Unremarkable; Negative Expressive Aphasia, Receptive Aphasia or Dysarthric
Cranial Nerve II: Left Eye: Pupillary Reactivity Unremarkable, Pupillary Size Unremarkable and Visual Serna Intact
Cranial Nerve II: Right Eye: Pupillary Reactivity Unremarkable, Pupillary Size Unremarkable and Visual Serna Intact
Cranial Nerves III, IV, : Extraocular Movement: Extraocular Movement Full in all Directions
Muscle Strength, Overall: Other (Left arm weakness and spasticity 4/5 shoulder strength, left leg extension 4-/5)
Pronator Drift: Drift in Left Upper Extremity
Modified Savanah Score (MRS)
-
MRS Score:
Data Reviewed
-
CT-A: Report Reviewed and Image Reviewed
CT Head: Report Reviewed and Image Reviewed
MRI Head: Report Reviewed and Image Reviewed
Echocardiogram: Ordered and Pending
Labs: Report Reviewed
Lipid Profile: Report Reviewed
[2023-11-02 07:30] VITALS: BP 144/83
[2023-11-02] MEDS: ELIQUIS 5 MG PO (08:36)
--- NOTE | 2023-11-02 10:41 | CM ---
Patient seen bedside.
[facility] referral (P).
Patient now inpatient, IMM provided.
PMR consultation (P).
Plan: Acute rehab if approved for bed at [facility] and pending insurance approval.
[2023-11-02 11:30] VITALS: BP 166/94
--- NOTE | 2023-11-02 13:03 | W.PN.HOSP.TC ---
Today's Communication/Plan
-
Add ASA
Switch to Xarelto starting tomorrow
DC planning
Assessment / Plan
Assessment / Plan
# Left lower extremity weakness worse than baseline;chronic left sided weakness since prior stroke- sec to acute ischemic infarcts
- MRI brain shows multiple areas of ischemic infarcts suggesting thromboembolic. Patient known to have A-fib but currently in sinus rhythm and she is on anticoagulation which she is compliant with. There is no evidence of hemodynamically
significant carotid stenosis or intracranial thrombus. Question comes as if she is failing Eliquis . Discussed with neurology who recommends addition of aspirin and consider changing to Xarelto.Not sure if ROSALIO would make a difference in management
as she is going to be on AC
-HbA1c 5.9, lipid profile -ldl 38, blood pressure mostly under goal
-Statin continued
-zetia continued
-PT/OT consult
# Leukocytosis -unclear etiology
-WBCs 19.9, afebrile.
-No focal infective symptoms. Urinalysis without pyuria. Chest x-ray without acute disease in the chest. COVID and flu negative. Patient had nonspecific tiredness before coming in which all resolved now. Improving white count without
treatments. Cannot rule out a viral syndrome.
-ctm
#�Essential hypertension
-BP stable
-valsartan continued
#paroxysmal atrial fib
-EKG with sinus tachycardia
-on anticoagulation
#Hyperlipidemia. Continue Lipitor and Zetia.
# DVT prophylaxis: SCDs.
# Code status: Full code.
Patient is agreeable to aspirin and she is ok switching to Xarelto.
PM&R consult
DC planning
Anticipated Discharge: Within 24 hours
Subjective/Interval History
-
Date of Service: November 02, 2023
Improving strength distally in the left foot and ankle but still weaker proximal.
No new symptoms.
Objective Data
-
Vital Signs:
Vital Signs
Temp Pulse Resp BP Pulse Ox
98.3 F 85 18 166/94 96
11/02/23 11:30 11/02/23 11:30 11/02/23 11:30 11/02/23 11:30 11/02/23 11:30
I&O
11/01/23 11/02/23 11/03/23
06:59 06:59 06:59
Intake Total 120 / 120 960 / 960
Balance 120 / 120 960 / 960
Review of Systems
-
Respiratory: Denies Trouble Breathing
Cardiac: Denies Chest Pain or Palpitations
Abdomen/GI: Denies Nausea or Vomiting
Neuro: Denies Dizzy or Headache
Physical Exam
-
General: No Apparent Distress
HEENT: Moist Mucous Membranes
Respiratory: Clear to Auscultation
Cardiac: Regular Rhythm and S1/S2
GI: Soft
Neuro: AO x 3; Negative No Motor Deficits (LUE strength as prior;LLE with 4/5)
Psych: Calm
Data Reviewed
-
MRI: Report Reviewed by me (MRI brain and MRA head and neck)
[2023-11-02] MEDS: ASPIR LOW (ENTERIC COATED) 81 MG PO (13:31)
[2023-11-02 15:30] VITALS: BP 159/78
[2023-11-02] MEDS: DIOVAN 80 MG PO (17:33)
[2023-11-02] MEDS: ZETIA 10 MG PO (17:33)
[2023-11-02] MEDS: XARELTO 20 MG PO (17:33)
[2023-11-02] MEDS: LIPITOR 40 MG PO (17:33)
[2023-11-02 19:25] VITALS: BP 147/72
[2023-11-02 20:08] LABS: Hepatitis C Antibody Negative (Negative)
[2023-11-02 22:48] VITALS: BP 113/62
[2023-11-03] VITALS (8 sets, daily range): BP systolic 113–171; BP diastolic 63–96; PULSE 77–78; O2SAT 98
[2023-11-03] MEDS: ASPIR LOW (ENTERIC COATED) 81 MG PO (09:06)
[2023-11-03 09:17] LABS: Hematocrit 37.9 % (37.0-47.0); Hemoglobin 12.9 g/dL (12.0-16.0); Mean Corpuscular Hgb 30.2 pg (27.0-31.0); Mean Corpuscular Volume 88.8 fL (81.0-99.0); Platelet Count 239 10^3/uL (130-400); Red Blood Cell Count 4.27 10^6/uL (4.20-5.40); Red Cell Dist. Width 12.9 % (11.5-14.5); White Blood Cell Count 7.5 10^3/uL (4.8-10.8)
--- NOTE | 2023-11-03 09:32 | CON.MD ---
Consultation - Medical
-
Referring Provider: Dr. David Carr
Chief Complaint: Stroke
History of Present Illness: 77-year-old female with PMH (as below) presented to [facility] on 10/31/2023 with left lower extremity weakness and difficulty walking. She has a history of CVA with left arm weakness and paresthesias in the left
leg. Echocardiogram with EF 65-75%. MRI of the brain noting infarcts in right MCA territory consistent with cardioembolic source. CTA of the head and neck with no evidence of left carotid stenosis. Mild 30% right ICA stenosis.
Past Medical History: CVA, paroxysmal A-fib, hypertension, hyperlipidemia
Procedure History: Cholecystectomy, left kidney donor
Family History: None pertinent
Social History:
Functional Level Premorbidly: Independent with all activities
Functional Level Currently:�� Min assist transfers, ambulating 22 feet x 2 with rolling walker mod assist 1�2 assist
Tobacco: Denies
Alcohol: Denies
Drug use: Denies
Lives with: Daughter and granddaughter
24-hour assistance available: No
Number of floors: 1
# steps to enter: 0
Driving: Yes
Occupation: Retired
�
Allergies:
Allergy/AdvReac Type Severity Reaction Status Date / Time
morphine Allergy Hives Verified 08/26/20 20:27
oxycodone HCl [From Percocet] Allergy Nausea / Verified 08/26/20 20:27
Vomiting
Review of Systems:
Constitutional: (x) abNormal _fatigue
Eye: (x) Normal _
Ear/Nose/Throat: (x) Normal _no swallowing difficulties
Respiratory: (x) Normal _
Cardiovascular: (x) Normal _
Gastrointestinal: (x) Normal _
Genitourinary: (x) Normal _
Musculoskeletal: (x) Normal _
Integumentary: (x) Normal _
Neurologic: (x) abNormal _worsening left-sided weakness. Stable left leg numbness/tingling
Psychiatric: (x) Normal _
Endocrine: (x) Normal _
Hematologic/Lymphatic: (x) Normal _
Allergic/Immunologic: (x) Normal _
Medications:
Active Current Visit Medication List
Category Date Time Status
Acetaminophen [Tylenol/Feverall] Med 10/31/23 19:19 Active
650 mg RECTAL Q4HPRN PRN
Acetaminophen [Tylenol] Med 10/31/23 19:19 Active
650 mg PO Q4HPRN PRN
Aspirin Low Dose EC [Aspir Low (Enteric Coated)] Med 11/02/23 14:00 Active
81 mg PO DAILY
Atorvastatin [Lipitor] Med 10/31/23 19:19 Active
40 mg PO QPM
Ezetimibe [Zetia] Med 10/31/23 19:19 Active
10 mg PO QPM
Flush (0.9% Sodium Chloride) [Flush (Nss)] Med 10/31/23 20:00 Active
See Dose Instructions IV PER PROTOCOL
Rivaroxaban [Xarelto] Med 11/02/23 18:00 Active
20 mg PO QPM
Valsartan [Diovan] Med 10/31/23 19:19 Active
80 mg PO QPM
Vitals:
Temp Pulse Resp BP Pulse Ox
98.0 F 82 20 143/81 97
11/03/23 07:30 11/03/23 07:30 11/03/23 07:30 11/03/23 07:30 11/03/23 07:30
Height 5 ft 3 in
Actual Weight 68.209 kg
Body Mass Index (BMI) 26.6
Physical Exam:
General Appearance/Observation: Well-developed, well-nourished female in no apparent distress.
Pain/Comfort Assessment: Denies
Mood/Affect: Appropriate
Integumentary/Operative Site:
�� Pressure Ulcer Evaluation: absent over heels.
Eyes: Conjunctiva/Lids: normal ��� Pupils: pupils equal round and reactive to light and Accommodation
Ears/Nose/Throat: oral mucosa moist,� throat clear.������������ Lips/Teeth/Gums: normal
Cardiovascular: Heart: regular, no murmur
Pulses: dorsalis pedis 2+ bilaterally
Respiratory: Respiratory Effort/Chest Expansion: normal ������ Auscultation: Clear to auscultation bilaterally
Gastrointestinal: abdomen not tender, no distension, normal abdominal bowel sounds
Genitourinary: No Garcia
Extremities: Edema: None Cyanosis: None Trophic changes: None
Neurology Exam:
Orientation: Alert, Oriented to self, Time, Place
Memory: Intact
Repetition: Intact
Comprehension: Intact
Two step command: Intact
Naming: Intact
Cranial Nerves:
�� CNII: Pupillary light reflex: Intact��� Visual Field: Intact
�� CN III, IV, : Extraocular muscles: Intact
�� CN V: Facial Sensation at Forehead: Intact, Maxilla: Intact, Mandible: Intact
�� CN VII: Facial movement: Slight left facial weakness
�� CN VIII: Hearing: Normal
�� CN IX/X: Speech & swallow: Normal, Position of Uvula: Midline
�� CN XI: Shoulder shrug: Decreased on left
�� CN XII: Tongue protrusion: Midline
Sensory:
�� Light touch: Intact in bilateral upper and right extremities. Has paresthesias left leg
Reflexes:
�� Biceps: 2+ bilaterally
�� Brachioradialis: 2+ bilaterally
�� Triceps: 2+ bilaterally
�� Patellar: 0 bilaterally
�� Achilles: 0 bilaterally
�� Babinski: Down going bilaterally
�� Clonus: None
�� Ha: Negative bilaterally
Cerebellar: Dysmetria/Ataxia: None
Musculoskeletal: Motor: (Manual muscle scale 0-5)
Muscle SA EF WE EE FF FA HF KE DF EHL PF
Right� 5 5 5 5 5 5 4 5 5 5 5
Left 4 4 4 4 4 4 3+ 4 4 4 4
trouble making full fist with a few fingers
Tone: Increased left upper extremity, normal other extremities
Range of Motion: Passively within normal limits in all extremities, except for some decreased DIP extension left fingers
Lab Results
Laboratory Data
11/03/23 08:42
11/01/23 08:02
PT 15.2 Sec (11.4-14.6) H 10/31/23 15:30
INR 1.22 10/31/23 15:30
APTT 34.0 Sec (23.4-35.0) 10/31/23 15:30
Total Bilirubin 1.2 mg/dl (0.2-1.3) 10/31/23 15:30
AST 38 U/L (14-36) H 10/31/23 15:30
ALT 31 U/L (0-35) 10/31/23 15:30
Alkaline Phosphatase 65 U/L (38-126) 10/31/23 15:30
Total Protein 6.4 g/dl (6.3-8.2) 10/31/23 15:30
Albumin 3.9 g/dl (3.5-5.0) 10/31/23 15:30
�
Diagnostic Results: as per HPI
Assessment
77-year-old right handed female with PMH (CVA, paroxysmal A-fib, hypertension, hyperlipidemia) presented to [facility] on 10/31/2023 with left lower extremity weakness and difficulty walking. She has a history of CVA with left arm weakness
and paresthesias in the left leg. Echocardiogram with EF 65-75%. MRI of the brain noting infarcts in right MCA territory consistent with cardioembolic source with ADL and ambulatory dysfunction
Plan
PM&R PT/OT to increase independence with ADLs, improve balance, coordination, endurance, strength, mobility, community reintegration, decreased burden of care on others and family education.
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 Secondary prophylaxis with aspirin, statin, and blood pressure control (SBP less than 180 and diastolic less than 100 to participate with therapy for ischemic
stroke). Continue to monitor neurologic status.
Left nondominant hemiparesis: High risk for falls and sliding out of chair/bed. Safety reinforced.
- Avoid using affected arm to help lift or pull patient as this will cause trauma to the shoulder.
HTN: Valsartan 80 mg, monitor closely
HLD: Statin, Zetia
Atrial fibrillation:�Xarelto anticoagulation and no rate control medications.������������������������������������������
FEN: Low-cholesterol
Psych: Psychology consult.� Monitor mood, medications as needed.
Pain: acetaminophen as needed.
Bowel: Colace and Senna, PRN bisacodyl.
Bladder: Time void, PVRs, PRN straight cath.
DVT Prophylaxis: Mechanical and Xarelto
Pulmonary: Incentive spirometry
Safety: Continue to reinforce assistance with all transfers.
Code Status:� Full code
Dispo (date/plan/equipment needs): Home with family care.
Functional and Medical Goals: Modified Independent with ADL�s, ambulation, transfers
Discharge Destination: Acute inpatient rehabilitation
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
Summary of recommendations:
- Discharge Destination: Acute inpatient rehabilitation
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 Secondary prophylaxis with aspirin, statin, and blood pressure control (SBP less than 180 and diastolic less than 100 to participate with therapy for ischemic
stroke). Continue to monitor neurologic status.
Left nondominant hemiparesis: High risk for falls and sliding out of chair/bed. Safety reinforced.
- Avoid using affected arm to help lift or pull patient as this will cause trauma to the shoulder.
Thank you for allowing me to care for your patient. Please contact me with any questions or concerns.
--- NOTE | 2023-11-03 10:44 | W.PN.HOSP.TC ---
Today's Communication/Plan
-
DC plan
Assessment / Plan
Assessment / Plan
# Left lower extremity weakness worse than baseline;chronic left sided weakness since prior stroke- sec to acute ischemic infarcts
- MRI brain shows multiple areas of ischemic infarcts suggesting thromboembolic. Patient known to have A-fib but currently in sinus rhythm and she is on anticoagulation which she is compliant with. There is no evidence of hemodynamically
significant carotid stenosis or intracranial thrombus. Question comes as if she is failing Eliquis . Discussed with neurology who recommends addition of aspirin and consider changing to Xarelto.Not sure if ROSALIO would make a difference in management
as she is going to be on AC
-HbA1c 5.9, lipid profile -ldl 38, blood pressure mostly under goal
-Statin continued
-zetia continued
-PT/OT recommends acute rehab. 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
# Leukocytosis -unclear etiology-normalized without treatment
-WBCs 19.9, afebrile.
-No focal infective symptoms. Urinalysis without pyuria. Chest x-ray without acute disease in the chest. COVID and flu negative. Patient had nonspecific tiredness before coming in which all resolved now. Improving white count without
treatments. Cannot rule out a viral syndrome.
#�Essential hypertension
-BP stable
-valsartan continued
#paroxysmal atrial fib
-EKG with sinus tachycardia
-on anticoagulation
#Hyperlipidemia. Continue Lipitor and Zetia.
# DVT prophylaxis: SCDs.
# Code status: Full code.
Patient is agreeable to aspirin and she is ok switching to Xarelto.
PM&R consult
DC to acute rehab if bed available
Anticipated Discharge: Today
Subjective/Interval History
-
Date of Service: November 03, 2023
No new symptoms. Improved left leg weakness
Objective Data
-
Labs:
Laboratory Results
11/03/23
08:42
WBC 7.5
Hgb 12.9
Hct 37.9
Plt Count 239 D
Vital Signs:
Vital Signs
Temp Pulse Resp BP Pulse Ox
98.0 F 82 20 143/81 97
11/03/23 07:30 11/03/23 07:30 11/03/23 07:30 11/03/23 07:30 11/03/23 07:30
I&O
11/02/23 11/03/23 11/04/23
06:59 06:59 06:59
Intake Total 960 / 960
Balance 960 / 960
Review of Systems
-
Respiratory: Denies Trouble Breathing
Cardiac: Denies Chest Pain or Palpitations
Abdomen/GI: Denies Nausea
Neuro: Denies Dizzy or Headache
Physical Exam
-
General: No Apparent Distress and Comfortable
Respiratory: Clear to Auscultation
Cardiac: Regular Rhythm and S1/S2
Neuro: AO x 3; Negative No Motor Deficits (As before)
Psych: Calm; Negative Confused
Data Reviewed
-
Labs: Labs Reviewed by me
--- NOTE | 2023-11-03 16:44 | CM ---
CM faxed auth to [facility], previously [facility] ([phone]), pending auth reference number [id number]. TRACEY spoke with Luis from [facility], aware waiting on auth status. CM will continue to follow for discharge planning needs.
Plan; [facility] pending auth status.
[2023-11-03] MEDS: ZETIA 10 MG PO (17:16)
[2023-11-03] MEDS: DIOVAN 80 MG PO (17:16)
[2023-11-03] MEDS: LIPITOR 40 MG PO (17:16)
[2023-11-04 03:00] VITALS: BP 127/64
[2023-11-04 03:41] VITALS: BP 127/64
[2023-11-04 07:30] VITALS: BP 124/85
[2023-11-04] MEDS: ASPIR LOW (ENTERIC COATED) 81 MG PO (09:11)
--- NOTE | 2023-11-04 10:21 | CM ---
Chart reviewed. Patient stable for discharge to [facility]. Call placed to [facility] - per correspondence representative, patient is approved for 7 days, acute rehab LOC, review due 11/09. Auth #[id number], billing auth #[id number]. Call to [facility] who confirm they are
able to accept patient this afternoon. MD, patient and family updated and in agreement with plan. RN to call report prior to transfer. CM remains available.
[facility] report: Ex. [phone]
Plan for transfer to [facility] today.
[2023-11-04 10:33] VITALS: BP 158/83; PULSE 90; O2SAT 97
[2023-11-04 11:00] VITALS: BP 138/87
--- NOTE | 2023-11-04 11:28 | W.PN.HOSP.TC ---
Today's Communication/Plan
-
dc
Assessment / Plan
Assessment / Plan
# Left lower extremity weakness worse than baseline;chronic left sided weakness since prior stroke- sec to acute ischemic infarcts
- MRI brain shows multiple areas of ischemic infarcts suggesting thromboembolic. Patient known to have A-fib but currently in sinus rhythm and she is on anticoagulation which she is compliant with. There is no evidence of hemodynamically
significant carotid stenosis or intracranial thrombus. Question comes as if she is failing Eliquis . Discussed with neurology who recommends addition of aspirin and consider changing to Xarelto.Not sure if ROSALIO would make a difference in management
as she is going to be on AC
-HbA1c 5.9, lipid profile -ldl 38, blood pressure mostly under goal
-Statin continued
-zetia continued
-PT/OT recommends acute rehab. Registered Appraiser input noted-meets criteria for acute rehab.
Patient's family brings to my attention that patient in the past was aspirin when the stroke happened so they did a aspirin assay and was later switched to Plavix. Plavix assay was also showing inefficacy so she brought to Eliquis.
Based on August 2020 aspirin assay while she was on aspirin shows inefficacy but level was very close to cutoff. Patient was on low-dose aspirin. Will discuss with neurology regarding antiplatelet choices-ARB dose aspirin and repeat assay or
consider Aggrenox
# Leukocytosis -unclear etiology-normalized without treatment
-WBCs 19.9, afebrile.
-No focal infective symptoms. Urinalysis without pyuria. Chest x-ray without acute disease in the chest. COVID and flu negative. Patient had nonspecific tiredness before coming in which all resolved now. Improving white count without
treatments. Cannot rule out a viral syndrome.
#�Essential hypertension
-BP stable
-valsartan continued
#paroxysmal atrial fib
-EKG with sinus tachycardia
-on anticoagulation
#Hyperlipidemia. Continue Lipitor and Zetia.
# DVT prophylaxis: SCDs.
# Code status: Full code.
Medically stable [facility]
Discussed with case management
Total time of discharge 35 minutes
Anticipated Discharge: Today
Subjective/Interval History
-
Date of Service: November 04, 2023
Improving left leg strength. No new neurological symptoms or any other specific complaints.
Objective Data
-
Vital Signs:
Vital Signs
Temp Pulse Resp BP Pulse Ox
98.0 F 84 18 124/85 97
11/04/23 07:30 11/04/23 07:30 11/04/23 07:30 11/04/23 07:30 11/04/23 07:30
I&O
11/03/23 11/04/23 11/05/23
06:59 06:59 06:59
Intake Total 1320 / 1320
Balance 1320 / 1320
Review of Systems
-
Respiratory: Denies Trouble Breathing
Cardiac: Denies Chest Pain or Palpitations
Abdomen/GI: Denies Abdominal Pain, Nausea or Vomiting
Neuro: Denies Dizzy or Headache
Physical Exam
-
General: No Apparent Distress
HEENT: Moist Mucous Membranes
Respiratory: Clear to Auscultation
Cardiac: Regular Rhythm and S1/S2
Neuro: AO x 3; Negative No Motor Deficits (Left proximal 4/5, left leg distally 4+/5)
--- NOTE | 2023-11-04 12:41 | W.DS.TRANS ---
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
-
Discharge Instructions:
Discharge Diagnosis/Procedures Acute CVA
Diet Low Cholesterol
Activity As tolerated
Driving Restrictions Not until seen by your Dr
Bathing Restrictions None
Blood Work Platelet assay in one week
Other Services PT,OT
Instructions:
Stand-Alone Forms:
Changes to Home Medications: Yes
Discharge Medications:
DC Medications w/original date entered in [facility]
ezetimibe 10 mg tablet 10 mg PO QPM High cholesterol 10/07/13
atorvastatin 40 mg tablet 40 mg PO QPM High cholesterol 08/26/20
calcium carbonate 500 mg calcium (1,250 mg) tablet (Oyster Shell Calcium 500) 500 mg PO DAILY Supplement 08/27/20
cholecalciferol (vitamin D3) 25 mcg (1,000 unit) tablet 1,000 units PO DAILY Supplement 08/27/20
multivitamin with folic acid 400 mcg tablet (Tab-A-Jose Luis) 1 tab PO DAILY Supplement 08/27/20
valsartan 80 mg tablet 80 mg PO QPM Blood Pressure 10/31/23
aspirin 81 mg tablet,delayed release 81 mg PO DAILY #1 tab 11/04/23
rivaroxaban 20 mg tablet (Xarelto) 20 mg PO QPM #1 tab 11/04/23
Home Medication Changes
New medication-aspirin
Change in medication-switch from Eliquis to Xarelto
Pending Results: No
== END 2023-11-04 14:19 | DRG 65 ==
LOC: 4 WEST ACU 08:05
PROVIDERS: Physician Assistant; Registered Nurse; ADMITTING PHYSICIAN Internal Medicine; CONSULT PHYSICIAN Physical Medicine & Rehabilitation; CONSULT PHYSICIAN Psychiatry & Neurology Neurology; EMERGENCY PHYSICIAN Emergency Medicine; FAMILY PHYSICIAN Family Medicine
DX: I63.9 Cerebral infarction, unspecified (principal); I69.354 Hemiplegia and hemiparesis following cerebral infarction affecting left non-dominant side; R53.1 Weakness; R26.2 Difficulty in walking, not elsewhere classified; D72.829 Elevated white blood cell count, unspecified; I65.21 Occlusion and stenosis of right carotid artery; E78.00 Pure hypercholesterolemia, unspecified; I48.0 Paroxysmal atrial fibrillation; I11.9 Hypertensive heart disease without heart failure; Z52.4 Kidney donor; Z90.49 Acquired absence of other specified parts of digestive tract; Z11.52 Encounter for screening for COVID-19; Z79.82 Long term (current) use of aspirin; Z79.01 Long term (current) use of anticoagulants; Z88.5 Allergy status to narcotic agent
CPT/HCPCS: 70450; 70496; 70498; 70551; 71046; 80048; 80053; 80061; 81003; 81015; 82607; 82728; 82746; 82962; 83036; 84443; 84484; 85025; 85027; 85610; 85652; 85730; 86803; 87086; 87147; 87186; 87502; 87811; 92523; 92526; 92610; 93005; 93306; 97110; 97112; 97116; 97163; 97167; 97535; 99291; Q9967

== ENCOUNTER → 2023-11-21 09:23 | Outpatient (REF) | payer MEDICARE, SELFPAY ==
[2023-11-21 10:35] LABS: VerifyNow Aspirin 431 ARU
== END ==
LOC: REG 09:23
PROVIDERS: ATTENDING PHYSICIAN Family Medicine
DX: Z86.73 Personal history of transient ischemic attack (TIA), and cerebral infarction without residual deficits (principal); I69.30 Unspecified sequelae of cerebral infarction; I69.90 Unspecified sequelae of unspecified cerebrovascular disease
CPT/HCPCS: 36415; 85576

== ENCOUNTER 2023-11-23 14:02 | Outpatient (RCR) | payer MEDICARE, SELFPAY | END 2023-11-23 23:59 | disposition home or self-care (01) | LOC: ROT 14:02 | PROVIDERS: ATTENDING PHYSICIAN Physical Medicine & Rehabilitation; FAMILY PHYSICIAN Family Medicine | DX: R26.9 Unspecified abnormalities of gait and mobility (principal); Z73.6 Limitation of activities due to disability; I69.954 Hemiplegia and hemiparesis following unspecified cerebrovascular disease affecting left non-dominant side | CPT/HCPCS: 97110; 97163; 97167 ==

== ENCOUNTER 2023-12-21 09:00 | Outpatient (RCR) | payer MEDICARE, SELFPAY | END 2023-12-21 23:59 | disposition home or self-care (01) | LOC: ROT 09:00 | PROVIDERS: ATTENDING PHYSICIAN Physical Medicine & Rehabilitation; FAMILY PHYSICIAN Family Medicine | DX: I63.9 Cerebral infarction, unspecified (principal); Z73.6 Limitation of activities due to disability | CPT/HCPCS: 97010; 97110; 97112; 97140; 97530; 97535 ==

== ENCOUNTER 2024-01-11 10:15 | Outpatient (RCR) | payer MEDICARE, SELFPAY | END 2024-01-18 13:42 | disposition home or self-care (01) | LOC: ROT 10:15 | PROVIDERS: ATTENDING PHYSICIAN Physical Medicine & Rehabilitation; FAMILY PHYSICIAN Family Medicine | DX: I63.9 Cerebral infarction, unspecified (principal); I69.354 Hemiplegia and hemiparesis following cerebral infarction affecting left non-dominant side (principal); Z73.6 Limitation of activities due to disability; R26.89 Other abnormalities of gait and mobility | CPT/HCPCS: 97010; 97110; 97112; 97140; 97530 ==

== ENCOUNTER → 2024-05-01 15:30 | Outpatient (REF) | payer MEDICARE, SELFPAY | LOC: WDC 15:30 | PROVIDERS: ATTENDING PHYSICIAN Family Medicine | DX: Z12.31 Encounter for screening mammogram for malignant neoplasm of breast (principal) | CPT/HCPCS: 77063; 77067 ==

== ENCOUNTER → 2024-05-23 09:57 | Outpatient (REF) | payer MEDICARE, SELFPAY | LOC: HWRAD 09:57 | PROVIDERS: ATTENDING PHYSICIAN Family Medicine; REFERRING PHYSICIAN Urology | DX: R31.9 Hematuria, unspecified (principal) | CPT/HCPCS: 74178; Q9967 ==

== ENCOUNTER 2024-07-29 06:47 | Day surgery (SDC) | payer MEDICARE, SELFPAY ==
[2024-07-19 09:33] VITALS: BMI 25.8
[2024-07-19 10:53] LABS: Hematocrit 37.7 % (37.0-47.0); Hemoglobin 12.6 g/dL (12.0-16.0); Mean Corp Hgb Conc. 33.4 g/dL (33.0-37.0); Mean Corpuscular Hgb 30.5 pg (27.0-31.0); Mean Corpuscular Volume 91.3 fL (81.0-99.0); Mean Platelet Volume 10.4 fL (7.4-10.4); Platelet Count 237 10^3/uL (130-400); Red Blood Cell Count 4.13 10^6/uL (4.20-5.40); Red Cell Dist. Width 12.9 % (11.5-14.5)
[2024-07-19 12:01] LABS: Blood Urea Nitrogen 21 mg/dl (7-17); Calcium 9.9 mg/dl (8.4-10.2); Carbon Dioxide 27 mmol/L (22-30); Chloride 103 mmol/L (98-107); Estimated Creatinine Clearance 40 ml/min; Glucose 84 mg/dl (70-99); Potassium 4.9 mmol/L (3.5-5.1); Sodium 143 mmol/L (135-145); eGFR 57.66
[2024-07-29] VITALS (14 sets, daily range): BP systolic 119–152; BP diastolic 45–78; BMI 25.8
--- NOTE | 2024-07-29 07:00 | W.SUR.PREOP ---
Pre-Operative Surgical Note
-
I have examined this patient prior to the performance of the scheduled procedure.
The patient's condition is unchanged from the time of the current History and
Physical and the patient is able to undergo the scheduled procedure.
[2024-07-29] MEDS: TYLENOL 1000 MG PO (07:04)
--- NOTE | 2024-07-29 09:26 | W.IMMPOSTOP ---
Addendum entered and electronically signed by Luis Fernando Vital MD 07/29/24 09:38:
#[id number]
Original Note:
Surgical Immed Post Op Note
-
Primary Surgeon: Amanuel
Assisting Surgeon: Edith CEE
Pre-op Diagnosis: Right inguinal hernia
Post-op Diagnosis: Right inguinal hernia, indirect
Procedure Performed: Open right inguinal herniorrhaphy with mesh
Anesthesia Type: General LMA +1% lidocaine with epi/0.25% Marcaine
Specimen / Cultures: None
Estimated Blood Loss: 4 mL
Complications: None immediate
Operative Findings: Right indirect inguinal hernia. Humberto tension-free mesh repair, 5 cm x 10 cm Bard soft mesh
Plan: Patient with history of 5 prior CVA/TIAs for which she is on chronic therapeutic anticoagulation with Xarelto. Therapeutic anticoagulation with heparin drip starting 12 hours postop in an effort to minimize stroke risk/time off of therapeutic
anticoagulation. No bolus with initiation of heparin drip. Subsequent tentative plan will be to discharge tomorrow afternoon with heparin drip bridge completed to Xarelto initiation tomorrow p.m.
--- NOTE | 2024-07-29 10:40 | PTCARENOTE ---
Patient admitted from [facility] open right inquinal hernia repair with mesh.She is alert and oriented and denies having any pain.The lower abdominal dressing is intact without drainage.The patient is in her bed with the call abarca in reach.
[2024-07-29] MEDS: THERAGRAN 1 TABLET PO (11:22)
[2024-07-29] MEDS: VITAMIN D3 (cholecalciferol) 25 MCG PO (11:23)
[2024-07-29] MEDS: ASPIR LOW (ENTERIC COATED) 81 MG PO (11:23)
[2024-07-29] MEDS: OSCAL CAL 500 500 MG PO (11:23)
[2024-07-29] MEDS: NSS 1000 IV (11:24)
[2024-07-29] MEDS: TOPROL XL 25 MG PO (17:07)
[2024-07-29] MEDS: ZETIA 10 MG PO (17:07)
[2024-07-29] MEDS: LIPITOR 40 MG PO (17:07)
[2024-07-29] MEDS: DIOVAN 80 MG PO (17:07)
[2024-07-29 20:06] LABS: Hematocrit 34.6 % (37.0-47.0); Hemoglobin 12.2 g/dL (12.0-16.0); Mean Corp Hgb Conc. 35.3 g/dL (33.0-37.0); Mean Corpuscular Hgb 29.6 pg (27.0-31.0); Mean Platelet Volume 9.4 fL (7.4-10.4); Platelet Count 252 10^3/uL (130-400); Red Blood Cell Count 4.12 10^6/uL (4.20-5.40); Red Cell Dist. Width 12.8 % (11.5-14.5); White Blood Cell Count 13.2 10^3/uL (4.8-10.8)
[2024-07-29 20:36] LABS: APTT 29.4 Sec (23.4-35.0)
[2024-07-29] MEDS: HEPARIN 25000 UNITS/250 ML IV (20:50)
[2024-07-29] MEDS: TYLENOL 650 MG PO (20:52)
[2024-07-29] MEDS: COLACE 100 MG PO (20:53)
[2024-07-30 03:06] VITALS: BP 138/76
[2024-07-30 03:24] LABS: APTT 33.1 Sec (23.4-35.0)
--- NOTE | 2024-07-30 06:23 | PTCARENOTE ---
PTT results observed at 0500. Notified house provider per changes per nov. New changes to heparin gtt ordered. Next lab draw per protocol scheduled.
[2024-07-30 07:00] VITALS: BP 151/63
--- NOTE | 2024-07-30 07:18 | W.PN.GS2 ---
Today's Communication / Plan
-
`
Assessment / Plan
-
Assessment: 78 y/o female POD#1 s/p open RIH repair with mesh
AFVSS
doing well
heparin gtt initiated overnight without clinical signs of bleeding/hematomas
Plan: continue heparin gtt as bridge to Xarelto d/t high risk for CVA
otherwise routine post op care
Subjective Data
-
Date of Service: July 30, 2024
pt seen and examined
offers no complaints, minimal post op discomfort in right inguinal area
marcus diet
IV fell out this AM - waiting for replacement to resume heparin gg
Objective Data
-
Intake and Output
07/29/24 07/30/24 07/31/24
06:59 06:59 06:59
Intake Total 570 / 570
Balance 570 / 570
Intake:
Oral fluids 220 / 220
IV fluids (Total) 350 / 350
Other:
Number of approximated LARGE 3
amounts of urine
Vital Signs
Temp Pulse Resp BP Pulse Ox
98.1 F 80 20 138/76 96
07/30/24 03:06 07/30/24 03:06 07/30/24 03:06 07/30/24 03:06 07/30/24 03:06
Lab Results
07/29/24 19:58
07/19/24 09:23
Calcium 9.9 mg/dl (8.4-10.2) 07/19/24 09:23
Physical Exam
-
NAD AAOx3
ABD: soft, ND, NTTP
right inguinal dressing in place - clean, no visible ecchymosis, no swelling, dry dressing
[2024-07-30] MEDS: ASPIR LOW (ENTERIC COATED) 81 MG PO (09:36)
[2024-07-30] MEDS: NSS IV (09:36)
[2024-07-30] MEDS: THERAGRAN 1 TABLET PO (09:36)
[2024-07-30] MEDS: OSCAL CAL 500 500 MG PO (09:36)
[2024-07-30] MEDS: COLACE 100 MG PO (09:36)
[2024-07-30] MEDS: VITAMIN D3 (cholecalciferol) 25 MCG PO (09:36)
[2024-07-30] MEDS: TYLENOL 650 MG PO ×2 (09:41→14:41)
[2024-07-30 11:00] VITALS: BP 114/78
[2024-07-30 12:43] LABS: APTT 120.1 Sec (23.4-35.0)
[2024-07-30 15:00] VITALS: BP 124/76
--- NOTE | 2024-07-30 15:22 | CM ---
Met with pt, her sister and daughter at bedside
Pt reports she lives in a 1 story home with her daughter; no steps to enter
Independent, active, drives
DME - none
SNF - [facility] in past
HH - [facility] in past
Has ride home when discharged
PCP - Gita Mejias
Pharm - [facility]
Plan - anticipate home no needs when medically ready
--- NOTE | 2024-07-30 16:28 | W.PN.SURGUPD ---
Surgical Update
Surgical Update
doing well
therapeutic on heparin gtt and right inguinal incision completely flat and soft. no ecchymosis.
okay to stop gtt and d/c home with resumption of xarelto this evening
--- NOTE | 2024-07-30 16:31 | W.DS.TRANS ---
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
-
Discharge Instructions:
Sleep Apnea Risk Low
Discharge Diagnosis/Procedures Right inguinal hernia. Open repair right
inguinal hernia with mesh
Diet As tolerated,Regular
Additional Diets Smaller meals if experiencing abdominal bloating
or distention postoperatively
Activity No strenuous activity
Driving Restrictions no driving 2-3 days post op
Bathing Restrictions OK to Shower
Wound Care Remove surgical dressing tomorrow AM. Leave
Steri-Strips in place. Steri-Strips will peel
off in 2 to 3 weeks
Instructions:
Stand-Alone Forms:
Changes to Home Medications: No
Discharge Medications:
DC Medications w/original date entered in [employer]
ezetimibe 10 mg tablet 10 mg PO QPM High cholesterol 10/07/13
atorvastatin 40 mg tablet 40 mg PO QPM High cholesterol 08/26/20
calcium carbonate (Oyster Shell Calcium 500) 500 mg PO DAILY Supplement 08/27/20
cholecalciferol (vitamin D3) 25 mcg (1,000 unit) tablet 1,000 units PO DAILY Supplement 08/27/20
multivitamin with folic acid 400 mcg tablet (Tab-A-Jose Luis) 1 tab PO DAILY Supplement 08/27/20
valsartan 80 mg tablet 80 mg PO QPM Blood Pressure 10/31/23
aspirin 81 mg tablet,delayed release 81 mg PO DAILY #1 tab 11/04/23
rivaroxaban 20 mg tablet (Xarelto) 20 mg PO QPM 30 days #30 tabs 11/14/23
metoprolol succinate 25 mg tablet,extended release 24 hr 25 mg PO QPM 07/22/24
acetaminophen 500 mg tablet (Tylenol Extra Strength) 1,000 mg (2 x 500 mg) PO Q6HPRN PRN mild pain #1 tab 07/29/24
polyethylene glycol 3350 17 gram/dose oral powder (Miralax) 4 g PO DAILY PRN Constipation #119 grams 07/29/24
Home Medication Changes
Pending Results: No
== END 2024-07-30 17:10 | disposition home or self-care (01) ==
LOC: SDS 06:47
PROVIDERS: ATTENDING PHYSICIAN Surgery; FAMILY PHYSICIAN Physician Assistant; OTHER PHYSICIAN Internal Medicine Cardiovascular Disease; OTHER PHYSICIAN Psychiatry & Neurology Neurology
DX: K40.90 Unilateral inguinal hernia, without obstruction or gangrene, not specified as recurrent (principal)
CPT/HCPCS: 49505; 36415; 80048; 85027; 85730; 93005

== ENCOUNTER → 2024-12-13 09:19 | Outpatient (REF) | payer MEDICARE, SELFPAY | LOC: RCS 09:19 | PROVIDERS: ATTENDING PHYSICIAN Internal Medicine Cardiovascular Disease; FAMILY PHYSICIAN Physician Assistant | DX: Z86.73 Personal history of transient ischemic attack (TIA), and cerebral infarction without residual deficits (principal); I48.0 Paroxysmal atrial fibrillation | CPT/HCPCS: 93306 ==